=== PATIENT | male | born 1980 | race Caucasian/White ===

== ENCOUNTER 2018-07-24 20:56 | Emergency (ER) | payer OTHER ==
[2018-07-24] MEDS ORDERED: NS 0.9% 1000 ML* 1,000 ML IV ONE (22:48)
[2018-07-24] MEDS ORDERED: Ketorolac INJ* 30 MG/ML 1 ML VIAL IV PUSH ONE (22:48)
--- NOTE | 2018-07-24 22:49 | ED ---
Abdominal Pain/Male - HPI Summary HPI Summary: This is Jonas curry, documenting for attending Sudeep Low MD. Pt is a 37 y/o M c/o intermittent abd pain lasting for ~3 days. 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 Assoc. Sx: abd pain. Denies: fever. He reports going to [facility] on Sunday to check out his abdominal pain and possible swallowing of sword piece. He walked out of the clinic on Sunday. He now visits the ED because the pain has not subsided and he is worried he may still have a piece of metal still lodged in his digestive track. - History of Current Complaint Chief Complaint: EDAbdPain Stated Complaint: ABD PAIN Time Seen by Provider: 07/24/18 22:08 Hx Obtained From: Patient Onset/Duration: Sudden Onset, Lasting Days Timing: Constant Severity Currently: Moderate Pain Intensity: 7 Pain Scale Used: 0-10 Numeric Location: Diffuse - Lower abd Character: Sharp Aggravating Factor(s): Nothing Alleviating Factor(s): Nothing Associated Signs And Symptoms: Negative: Fever - Allergies/Home Medications Allergies/Adverse Reactions: Allergies Allergy/AdvReac Type Severity Reaction Status Date / Time No Known Allergies Allergy Verified 02/07/15 12:04 PMH/Surg Hx/FS Hx/Imm Hx Endocrine/Hematology History: Reports: Hx Diabetes Cardiovascular History: Reports: Hx Hypertension Denies: Hx Coronary Artery Disease Respiratory History: Reports: Hx Asthma Infectious Disease History: No Infectious Disease History: Denies: History Other Infectious Disease, Traveled Outside the [place] in Last 30 Days - Family History Known Family History: Positive: Other - Stroke Negative: Cardiac Disease, Hypertension - Social History Occupation: Employed Full-time Lives: With Family Alcohol Use: Occasionally Alcohol Amount: less than6/weekends Substance Use Type: Reports: Marijuana Smoking Status (MU): Light Every Day Tobacco Smoker Type: Cigarettes Amount Used/How Often: 1/3 PPD Length of Time of Smoking/Using Tobacco: 9 yrs Have You Smoked in the Last Year: Yes Review of Systems Negative: Fever Positive: Abdominal Pain All Other Systems Reviewed And Are Negative: Yes Physical Exam - Summary Physical Exam Summary: VITAL SIGNS: Reviewed. GENERAL: Patient is a well-developed and nourished male who is lying comfortable in the stretcher. Patient is not in any acute respiratory distress. HEAD AND FACE: No signs of trauma. No ecchymosis, hematomas or skull depressions. No sinus tenderness. EYES: PERRLA, EOMI x 2, No injected conjunctiva, no nystagmus. EARS: Hearing grossly intact. Ear canals and tympanic membranes are within normal limits. MOUTH: Oropharynx within normal limits. NECK: Supple, trachea is midline, no adenopathy, no JVD, no carotid bruit, no c- spine tenderness, neck with full ROM. CHEST: Symmetric, no tenderness at palpation LUNGS: Clear to auscultation bilaterally. No wheezing or crackles. CVS: Regular rate and rhythm, S1 and S2 present, no murmurs or gallops appreciated. ABDOMEN: Soft, non-tender. No signs of distention. No rebound no guarding, and no masses palpated. Hyperactive bowel sounds. EXTREMITIES: FROM in all major joints, no edema, no cyanosis or clubbing. NEURO: Alert and oriented x 3. No acute neurological deficits. Speech is normal and follows commands. SKIN: Dry and warm Triage Information Reviewed: Yes Vital Signs On Initial Exam: Initial Vitals Temp Pulse Resp BP Pulse Ox 100.1 F 112 18 124/89 97 07/24/18 20:58 07/24/18 20:58 07/24/18 20:58 07/24/18 20:58 07/24/18 20:58 Vital Signs Reviewed: Yes Diagnostics - Vital Signs Vital Signs Temp Pulse Resp BP Pulse Ox 07/24/18 21:52 87 96 07/24/18 20:58 100.1 F 112 18 124/89 97 - Laboratory Result Diagrams: 07/24/18 22:58 07/24/18 22:58 Lab Statement: Any lab studies that have been ordered have been reviewed, and results considered in the medical decision making process. - CT C/A/P CT CT Interpretation: No Acute Changes - IMPRESSION: no thoracic radiopaque foreign bodies. CT Interpretation Completed By: ED Physician - ED physician reviewed this radiology report. Abdominal Pain Fem Course/Dx - Course Course Of Treatment: Patient was seen by provider and a C/A/P CT was ordered to look for any metal pieces in his digestive track. Results - negative; patient will be D/C home. - Diagnoses Provider Diagnoses: Abdominal pain Discharge - Sign-Out/Discharge Documenting (check all that apply): Patient Departure - Discharge Plan Condition: Stable Disposition: HOME Patient Education Materials: Abdominal Pain (ED) Referrals: Vinnie Grajeda MD [Primary Care Provider] - Additional Instructions: RETURN TO THE EMERGENCY DEPARTMENT FOR CHANGING OR WORSENING SYMPTOMS. FOLLOW UP WITH PCP IN 1-2 DAYS. - Attestation Statements Document Initiated by Scribe: Yes Documenting Scribe: Jonas Nevarez Provider For Whom Scribe is Documenting (Include Credential): Sudeep Low MD Scribe Attestation: Jonas Simon, scribed for Sudeep Low MD on 07/25/18 at 0226.
[2018-07-24] MEDS ORDERED: Albuterol/Ipratropium NEB.SOL* Albuterol 2.5 MG/Ipratropium 0.5 MG 3 ML INH ONE (23:13)
[2018-07-24] MEDS ORDERED: Albuterol 2.5 MG/3 ML NEB.SOL* (0.083%) INH ONE (23:16)
[2018-07-24 23:21] LABS: ABS Basophils 0.1 10^3/ul (0-0.2); ABS Eosinophils 0.1 10^3/ul (0-0.6); ABS Lymphocytes 1.8 10^3/ul (1.0-4.8); ABS Monocytes 0.6 10^3/ul (0-0.8); ABS Neutrophils 6.4 10^3/ul (1.5-7.7); ABS Nucleated RBC 0 10^3/ul; Eosinophil % 1.5 % (0-6); Hematocrit 40 % (42-52); Hemoglobin 13.9 g/dl (14.0-18.0); Lymphocyte % 20.4 % (25-47); Mean Corpuscular HGB Conc 35 g/dl (31-36); Mean Corpuscular Hemoglobin 30 pg (27-31); Mean Corpuscular Volume 86 fL (80-94); Mean Platelet Volume 7.4 um3 (7.4-10.4); Nucleated Red Blood Cells % 0.2; Platelet Count 286 10^3/ul (150-450); Red Blood Count 4.65 10^6/ul (4.00-5.40); Red Cell Distribution Width 15 % (10.5-15); White Blood Count 9.1 10^3/ul (3.5-10.8)
[2018-07-24 23:31] LABS: INR 0.87 (0.77-1.02)
[2018-07-24 23:40] LABS: EGFR Non-African American 116.6 (>60)
[2018-07-25] MEDS ORDERED: Iodixanol* (CONTRAST) 320 MG/ML 100 ML SDV IV ONE
--- NOTE | 2018-07-25 01:05 | RAD ---
EXAM: CT Chest With Intravenous Contrast CLINICAL HISTORY: 37 years old, male; Abnormal findings; Abnormal radiologic finding of the abdomen; Radiologic exam and body structure: Kub; Other: R/O fb; Additional info: Abd pain. R/O fb. 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 All CT scans at this facility use at least one of these dose optimization techniques: automated exposure control; mA and/or kV adjustment per patient size (includes targeted exams where dose is matched to clinical indication); or iterative reconstruction. Coronal and sagittal reformatted images were created and reviewed. CONTRAST: 102 mL of VISIPAQUE 320 administered intravenously. COMPARISON: No relevant prior studies available. FINDINGS: Lungs: No pulmonary nodules, masses, or consolidations. No bronchiectasis, peribronchial thickening, or luminal defects. Pleural space: Normal. No pneumothorax. No effusion. Heart: Normal. No cardiomegaly. No pericardial effusion. Thyroid: No thyroid nodules. Bones/joints: No fractures. No suspicious bone lesions. Soft tissues: No subcutaneous radiopaque foreign bodies. Vasculature: Normal caliber aorta with no evidence of dissection or rupture. Lymph nodes: Normal. No enlarged lymph nodes. IMPRESSION: No thoracic radiopaque foreign bodies. EXAM: CT Abdomen and Pelvis With Intravenous Contrast CLINICAL HISTORY: 37 years old, male; Abnormal findings; Abnormal radiologic finding of the abdomen; Radiologic exam and body structure: Kub; Other: R/O fb; Additional info: Abd pain. R/O fb. 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 All CT scans at this facility use at least one of these dose optimization techniques: automated exposure control; mA and/or kV adjustment per patient size (includes targeted exams where dose is matched to clinical indication); or iterative reconstruction. Coronal and sagittal reformatted images were created and reviewed. CONTRAST: 102 mL of VISIPAQUE 320 administered intravenously. 102 mL of VISIPAQUE 320 administered intravenously. COMPARISON: No relevant prior studies available. FINDINGS: Lung bases: Normal. No mass. No consolidation. ABDOMEN: Liver: Normal. No masses. Portal and hepatic veins are patent. Gallbladder and bile ducts: Normal. No radiopaque calculi. No ductal dilation. Pancreas: Normal. No mass. No ductal dilation. Spleen: Normal. No splenomegaly. Adrenals: Normal. No mass. Kidneys and ureters: Normal. No solid mass. Stomach and bowel: Incompletely distended grossly normal stomach. Normal caliber small bowel. No colonic masses or segmental wall thickening. No intraluminal radiopaque foreign bodies. PELVIS: Appendix: No dilation or periappendiceal inflammation. Bladder: Thin-walled bladder with no focal nodularity, perivesicular stranding, or calcifications. Reproductive: Normal sized prostate. Normal seminal vesicles. ABDOMEN and PELVIS: Intraperitoneal space: Normal. No pneumoperitoneum. No ascities. Bones/joints: No fractures. No suspicious bone lesions. Soft tissues: Normal. No hernias. Vasculature: Normal caliber aorta with no evidence of dissection or rupture. Patent IVC. Lymph nodes: Normal. No enlarged lymph nodes. IMPRESSION: No abdominal or pelvic radiopaque foreign bodies.
[2018-07-25 01:14] LABS: Urine Appearance Clear; Urine Blood Negative (Negative); Urine Color Yellow; Urine Ketones Negative (Negative); Urine Protein Negative (Negative); Urine Specific Gravity > 1.060 (1.010-1.030); Urine Urobilinogen Negative (Negative)
[2018-07-25 01:32] VITALS: BP 126/91
== END 2018-07-25 01:30 | disposition home or self-care (01) ==
LOC: ED 20:56
DX: R10.9 Unspecified abdominal pain (principal); F17.210 Nicotine dependence, cigarettes, uncomplicated
CPT/HCPCS: 36415; 71260; 74177; 80053; 80307; 81003; 82150; 83690; 83735; 85025; 85610; 85730; 86140; 96361; 96374; 99284; A9270-GY; J1885; Q9967